=== PATIENT | female | born 1955 | race Caucasian/White ===

== ENCOUNTER → 2016-11-20 | Outpatient (CLI) | payer OTHER ==
[~2016-11-20] VITALS: Ht 157.5 cm; Wt 92.1 kg
[~2016-11-20] MED LIST: ACETAMINOPHEN-1 EAC1 PO; ADVAIR HFA115 MCG/21 INH; CHLORTHALIDONE25 MG PO; CLEOCIN HCL150 MG PO; HYDROCHLOROTH12.5 MG PO; HYDROCODONE-AP1 EAC6 PO; IBUPROFEN 600600 M1 PO; KETOPROFEN50 MG PO; LEVOTHYROXINE 0.1 MG PO; LOTREL 5-40 MG1 EACH PO; NORCO 5-325 TA1 EACH PO; PRILOSEC 20 MG20 MG PO; PROAIR HFA8.5 GM INH; SYNTHROID50 MCG PO; TRAMADOL 50 MG50 MG PO
--- NOTE | ~2016-11-20 | HPC ---
[facility] [place] [address] PAIN MANAGEMENT CONSULTATION Name: YARI WEINER Room #: REG [facility].#: [id number] Admission: 11/20/16 Attend Phys: Hector Bowens DO Discharge: Date of : 53 Report #: [id number] THIS REPORT FOR: //name// CC: Hector Goldberg DO DATE OF SERVICE: 11/20/2016 REFERRING PHYSICIAN: Miracle Lloyd MD CHIEF COMPLAINT: Low back pain, left lower extremity pain, left shoulder pain. HISTORY OF PRESENT ILLNESS: As you know, the patient is a 61-year-old female who returns today in followup visit to undergo the 3rd and final series of lumbar epidural injections under fluoroscopic guidance. The patient reports pain today of level of 4-5/10. Pain is burning, shooting, aching, throbbing, sharp, stabbing, tender and exacerbated with bending, walking, improves with sitting, heat, cold compresses and epidural injections. She reports a 50% improvement in overall pain with the epidural injection provided at last visit. She returns today requesting next in the series to build on success of previous intervention. She denies new injury or new trauma that may have led to continuation of her low back pain and lower extremity pain with paresthesias. She is also concerned today of ongoing left shoulder pain due to severe arthritic changes in the joint itself. She was discussed treatment options for this as well. ALLERGIES: SULFA. CURRENT MEDICATIONS: Ketoprofen twice a day, chlorthalidone 25 mg once a day, levothyroxine 100 mcg per day, amlodipine/benazepril 5/40 one tab per day. SOCIAL HISTORY: The patient continues to smoke. Denies IV or illicit drug use. Admits to 2 alcoholic beverages per day. She is currently unemployed. She is unaccompanied. PHYSICAL EXAMINATION: VITAL SIGNS: Blood pressure 126/78, pulse 85, respiratory rate 20, unlabored. The patient is 100% on room air. Height 5 feet 2 inches tall, weighs 203 pounds, BMI calculated 37.1. GENERAL: Well-developed, well-nourished, well-hydrated, morbidly obese 61-year-old female, appears stated age, placing current pain score at 4-5/10. HEENT: Normocephalic, atraumatic. Pupils equal, round, reactive to light. EXTREMITIES: Show no clubbing, no cyanosis, no edema. MUSCULOSKELETAL: Lower extremity strength appears equal and symmetrical 5/5, [address] [address] PAIN MANAGEMENT CONSULTATION Name: YARI WEINER [id number] Admission: 11/20/16 Attend Phys: Hector Bowens DO Discharge: Date of : 53 Report #: [id number] intact to light touch from L1 through S2 dermatomes. Seated straight leg raising negative. Supine straight leg raising positive on the left. Parag's test negative. Gait is mildly antalgic favoring left lower extremity over right. Stance is normal. There is palpatory tenderness over the anterior and posterior portion of the left shoulder. Active and passive range of motion of left shoulder causes intensification of pain. There is crepitus noted with maneuvering the shoulder in passive range of motion. ASSESSMENT: 1. Lumbar radiculopathy. 2. Spinal stenosis of the lumbar spine. 3. Displacement of lumbar intervertebral disk with radiculopathy. 4. Lumbosacral spondylosis with radiculopathy. 5. Degeneration of lumbar spine. 6. Left shoulder pain. 7. Chronic intractable pain. PLAN: 1. The patient has returned today in followup visit having received precertification to undergo the next in the series of epidural injections. The patient reported approximately 50% improvement in overall pain with the previous injection and hopeful to see similar improvement with today's procedure. She was advised risks and benefits of procedures, states she understood and wished to proceed. 2. The patient is experiencing ongoing left shoulder pain for which she indicates that she has had intra-articular shoulder injections in the past with good efficacy. It appears the patient is suffering from arthritic changes in the joint itself. There may be ultimately a labral tear that may need surgical option, but she has done very well with intra-articular shoulder injections in the past. She has requested of our services that we attempt to obtain precertification to undergo a left intra-articular shoulder injection in hopes of improving pain. I did advise the patient that this will take somewhere between 4-7 working days to have this approval obtained. Once we have the approval obtained, we will have the patient return in followup visit to undergo an intra-articular shoulder injection under fluoroscopic guidance. Again, we will schedule the patient back for this procedure once we have approval to move forward with this option for treatment. 3. No medication changes were made at today's visit. The patient will continue current medical therapy as previously prescribed. 4. The patient to return to our clinic once we have achieved authorization to undergo left intra-articular shoulder injection. PROCEDURE NOTE DESCRIPTION OF PROCEDURE: Lumbar epidural steroid injection under fluoroscopic guidance. [address] [address] PAIN MANAGEMENT CONSULTATION Name: YARI WEINER Room #: REG [facility]#: [id number] Admission: 11/20/16 Attend Phys: Hector Bowens DO Discharge: Date of : 53 Report #: [id number] This is the third procedure of the first series that the patient is undergoing. After obtaining written consent, the patient was taken back to the fluoroscopy suite, placed in a prone position with pillow under the abdomen to decrease lumbar lordosis. The skin overlying the lumbosacral area was then prepped and draped in aseptic fashion. The lumbar vertebral interspace was then identified by AP fluoroscopy. The skin and subcutaneous tissue overlying the target site of injection was anesthetized with 3 mL 1% lidocaine. A 20 gauge 3.5 inch Tuohy needle was then advanced under fluoroscopic guidance towards the epidural space using a paramedian approach. The epidural space was identified using loss of resistance to air technique. After negative aspiration for heme or cerebrospinal fluid, a total of 1 mL of Omnipaque was injected. A lumbar epidurogram was confirmed using both AP and lateral fluoroscopy. After negative aspiration for heme or cerebrospinal fluid, 5 mL of a solution containing 1 mL 40 mg per mL, 40 mg total triamcinolone, 1 mL of Depo-Medrol 80 mg per mL and 3 mL of lidocaine 1% was injected in increments. Contrast spread was noted in posterior epidural space. The needle was then retracted approximately half way and needle tract flushed with 1 mL of 1% lidocaine. Needle was then removed. There were no apparent sensory or motor deficits in the lower extremity following the procedure. A sterile bandage was placed over the injection site. The heart rate, pulse, oximetry and blood pressure were continuously monitored after the procedure. There were no apparent complications. The patient tolerated the procedure well and was carefully escorted to the recovery room in stable condition. There were no apparent complications. After meeting discharge criteria, the patient was then discharged home. <ELECTRONICALLY SIGNED> By: Hector Bowens DO 11/21/16 0757 1521 10 Hector Bowens DO /nt
[2016-11-20 13:31] VITALS: BP 126/78
== END | disposition home or self-care (01) ==
LOC: PAIN 10-30 08:45
DX: M51.16 Intervertebral disc disorders with radiculopathy, lumbar region (principal); M47.27 Other spondylosis with radiculopathy, lumbosacral region; M48.06 Spinal stenosis, lumbar region; M25.511 Pain in right shoulder; G89.29 Other chronic pain

== ENCOUNTER → 2016-12-11 | Outpatient (CLI) | payer OTHER ==
[~2016-12-11] VITALS: Ht 157.5 cm; Wt 91.8 kg
--- NOTE | ~2016-12-11 | HPC ---
[address] [place] [address] PAIN MANAGEMENT CONSULTATION Name: YARI WEINER Room #: REG [facility]#: [id number] Admission: 12/11/16 Attend Phys: Hector Bowens DO Discharge: Date of : 53 Report #: [id number] THIS REPORT FOR: //name// CC: Hector Mendoza DATE OF SERVICE: 12/11/2016 DATE OF SERVICE: 12/11/2016 CHIEF COMPLAINT: Left shoulder pain. HISTORY OF PRESENT ILLNESS: As you know, patient is a 61-year-old female, who returns today in followup visit to discuss her left shoulder pain. We have received precertification for the patient to undergo a left shoulder injection under fluoroscopic guidance, as she continues to experience shoulder pain with activities. The patient denies any new injury, new trauma to the shoulder that lead to progression of pain. She returns today requesting this injection plus medication management for pain control. ALLERGIES: SULFA. CURRENT MEDICATIONS: Ketoprofen 50 mg twice a day, chlorthalidone 25 mg once a day, levothyroxine 100 mcg per day, amlodipine/benazepril 5/40 one tab per day. SOCIAL HISTORY: The patient continues to smoke. Denies IV or illicit drug use. Admits to 2 alcoholic beverages per day. She is employed. She is working, not receiving workmen's compensation, unaccompanied today. PHYSICAL EXAMINATION: VITAL SIGNS: Blood pressure 164/93, pulse 73, respiratory rate 16, unlabored. The patient 98% on room air. Height 5 feet 2 inch tall, weight 202.4 pounds, BMI calculated 37. GENERAL: Well-developed, well-nourished, well-hydrated, morbidly obese 61-year-old female appearing stated age, placing current pain score 6/10. HEENT: Normocephalic, atraumatic. Pupils equal, round, reactive to light. Extraocular muscles are intact. EXTREMITIES: Show no clubbing, no cyanosis, no edema. MUSCULOSKELETAL: Pain is elicited with active and passive range of motion of the left shoulder. Deep palpation over the shoulder, both anterior and posteriorly cause intensification of pain. Upper extremity strength does appear equal and symmetrical, though there is a slight giveaway strength with bicep flexion on the left when compared to the right. [address] [address] PAIN MANAGEMENT CONSULTATION Name: YARI WEINER Room #: REG [facility]#: [id number] Admission: 12/11/16 Attend Phys: Hector Bowens DO Discharge: Date of : 53 Report #: [id number] ASSESSMENT: Left shoulder pain. PLAN: 1. The patient has returned today in followup visit requesting to address her left shoulder pain. We have received precertification for the patient to undergo a left intra-articular shoulder injection under fluoroscopic guidance. The patient and I did discuss the options for treatment including this injection, which would entail physical therapy, stretching exercise, core strengthening to maintain mobility of the shoulder. We discussed the intra-articular shoulder injection per plan for today and surgical options. After we discussed these variable treatment options, the patient chose to continue with the intra-articular shoulder injection. She was advised the risks and benefits of the procedure. These risks include but not necessarily limited to bleeding, bruising, infection, worsening pain, no relief of pain, also risk of temporary or permanent muscle weakness, temporary or permanent nerve damage and joint destruction. The patient states understood and wished to proceed. 2. The patient was provided a prescription of tramadol 50 mg dose 1 tab p.o. q. 6 hours p.r.n. for pain, I have given the patient #90 tablets. The patient was given the prescription today, but chose not to take the prescription. She declined this prescription. She indicated that she would be receiving her pain medications to her primary care physician. 3. The patient will return to our clinic on an as needed basis for treatment for lumbar radicular symptoms and left shoulder pain. PROCEDURE NOTE DESCRIPTION OF PROCEDURE: Left intraarticular shoulder injection under fluoroscopic guidance. After obtaining written consent, the patient was taken back to fluoroscopy suite, placed in a supine position. The image intensifier was then brought over the left shoulder and imaging was obtained to confirm position of the injection. The area was then marked with a marker and then prepped sterilely with chlorhexidine. A #25-gauge 2 inch needle was used to anesthetize skin and subcutaneous tissue with 1 mL of lidocaine 1%. This 2 inch needle was then advanced under fluoroscopic guidance into the shoulder joint under direct visualization. The needle was advanced until it reached the proximal head of the humerus. The needle was then retracted approximately 1 mm. Aspiration was noted to be negative for heme. Next, 0.5 mL of Omnipaque was injected demonstrating an excellent left shoulder arthrogram. After negative aspiration for heme, 3 mL of a solution containing 1 mL 40 mg per mL, 40 mg total triamcinolone and 2 mL bupivacaine 0.5% was injected slowly. Needle was retracted [facility] flushed with 1 mL bupivacaine 0.5% and removed. Sterile bandage was placed over injection site. No new motor deficits present in the left upper extremity after [facility] [address] [place] [address] PAIN MANAGEMENT CONSULTATION Name: YARI WEINER [facility] [id number] Admission: 12/11/16 Attend Phys: Hector Bowens DO Discharge: Date of : 53 Report #: [id number] procedure. The patient tolerated procedure well, carefully escorted to recovery room in stable condition. No apparent complications. After meeting discharge criteria, the patient discharged home. <ELECTRONICALLY SIGNED> By: Hector Bowens DO 12/24/16 0805 0806 2248 Hector Bowens DO /nt
[2016-12-11 11:26] VITALS: BP 164/93
== END | disposition home or self-care (01) ==
LOC: PAIN 06:50
DX: M25.512 Pain in left shoulder (principal); F17.210 Nicotine dependence, cigarettes, uncomplicated

== ENCOUNTER → 2017-12-03 | Outpatient (CLI) | payer OTHER ==
[~2017-12-03] VITALS: Ht 157.5 cm; Wt 92.1 kg
[~2017-12-03] MED LIST changes: -KETOPROFEN50 MG PO; +KETOPROFEN75 MG PO; +NABUMETONE 500500 M1 PO; +VITAMIN B-12500 MCG PO
--- NOTE | ~2017-12-03 | HPC ---
[facility] [place] [address] PAIN MANAGEMENT CONSULTATION Name: KUSUMCYNTHIAYARI MEIR [facility] [id number] Admission: 12/03/17 Attend Phys: Hector Bowens DO Discharge: Date of : 53 Report #: [id number] THIS REPORT FOR: //name// CC: Hector Goldberg DATE OF SERVICE: 12/03/2017 CHIEF COMPLAINT: Right thumb pain, right shoulder pain. HISTORY OF PRESENT ILLNESS: As you know, the patient is a pleasant 62-year-old female who was initially seen by [facility] in the past for low back pain, bilateral lower extremity pain. She was referred to our clinic by her primary care physician for treatment. She has been lost to follow up until today, 12/03/2017, returning for right shoulder pain, which has been found to have severe osteoarthritic changes and right thumb pain that radiates from the metacarpal joint, both distally and proximally up to about 3 inches from the right wrist. No radiation of symptoms in cervical radicular pattern. She indicates that she saw Orthopedics who advised the patient that the numbness and tingling was due to neck issues, sent the patient for an MRI, which shows no neural foraminal stenosis, no central canal stenosis and no impingement of the nerve root throughout the cervical region. She is placing her symptom score at 2/10 involving only right shoulder. ALLERGIES: SULFA. CURRENT MEDICATIONS: Cyanocobalamin 500 mcg once a day, ketoprofen 75 mg twice a day, chlorthalidone 25 mg a day, levothyroxine 100 mcg per day, amlodipine/benazepril 5/40 one tab per day. IMAGING: MRI cervical spine obtained on 09/23/2017 showed C1-C2 unremarkable. C2-C3 unremarkable. C3-C4 unremarkable. C4-C5 unremarkable. C5-C6 shows a minimal right uncovertebral osteophyte; no significant central canal neural foraminal stenosis; no subluxation, dislocation, disk protrusion; no nerve root impingement. C6-C7 unremarkable. PHYSICAL EXAMINATION: VITAL SIGNS: Blood pressure 141/84, pulse is 80, respiratory rate 16 and unlabored. The patient is 98% on room air, height 5 feet 2 inches tall, weight 203 pounds, BMI calculated 37.1. GENERAL: Well-developed, well-nourished, well-hydrated exogenously obese 62-year-old female appearing her stated age, pain is rated at 2/10. HEENT: Normocephalic, atraumatic. Pupils equal, round, reactive to light. Extraocular muscles are intact. Sclerae nonicteric without injection. NEUROLOGIC: Cranial nerves 2-12 grossly intact. Speech is fluent. LUNGS: Clear. No wheeze, rhonchi or rales. [address] [address] PAIN MANAGEMENT CONSULTATION Name: KUSUMCYNTHIAYARISalome WORLEY Room #: REG [facility]#: [id number] Admission: 12/03/17 Attend Phys: Hector Bowens DO Discharge: Date of : 53 Report #: [id number] CARDIOVASCULAR: Regular. No appreciable gallop, no rub. ABDOMEN: Soft, obese, nontender, nondistended, normal active bowel sounds. EXTREMITIES: Show no clubbing, no cyanosis, no edema. MUSCULOSKELETAL: Active and passive range of motion right shoulder causes intensification of pain. Apprehension test is negative. Cervical provocation testing causes no change in overall pain. Spurling's test negative. Muscle bulk and tone equal and symmetrical in upper extremities. Boarding House Manager strength is equal and symmetrical 5/5. Tactile sensation from C5-T1 normal. There is tenderness to palpation over the metacarpophalangeal joint of the right side, proximal portion of the thumb. Deep palpation of the area causes the patient's typical radiating pain pattern. ASSESSMENT: 1. Right shoulder osteoarthritis. 2. Right hand pain and wrist pain. 3. Chronic intractable pain. PLAN: 1. Based on today's physical exam and history the patient has provided, the description the patient uses in regards to pain as well as the discrete locations of symptoms, one being the right shoulder which does not radiate beyond typical shoulder distribution and the right proximal thumb pain, the physical exam, the findings on MRI imaging would indicate no cervical etiology. I have reviewed the MRI, both in the official read from the radiologist as well as the imaging, I am unable to find any nerve root impingement, there is no subluxations, no dislocations, there are disc no signal changes, there is only a minor osteophytic formation at the C5-C6 level but this would not cause any nerve root impingement, nor has there been any changes or deformation of the nerve within the area, the canal itself is patent. Deep palpation over the proximal portion of the thumb shows a point tender specificness over the phalangeal carpal joint, I believe is arthritic in nature and this is the source of the patient's right thumb pain. As for the shoulder, no radicular component. The patient has been referred to our clinic by her orthopedic surgeon for possible cervical epidural injection at this point. At this point, I have been unable to elicit any radicular component of the patient's symptoms, but she could certainly undergo an epidural injection. We advised the patient that third green party payer restrictions require that authorization be obtained and we will begin this authorization process. If we are able to obtain an authorization for the patient to undergo the cervical epidural injection, we will have her back to undergo the procedure. 2. The patient will be started on nabumetone 500 mg dose 1 tab p.o. t.i.d., #90, 2 refills. This is being provided to the patient for anti-inflammatory activity. The patient has reported she has near 100% improvement in her symptoms with [id number] nonsteroidal anti-inflammatory therapy. We are going to try the patient on a week worth of medication. If this is effective at treating symptoms, this would indicate more of an arthritic problem than a [facility] [address] [place] [address] PAIN MANAGEMENT CONSULTATION Name: YARI WEINER Room #: REG CL Ira#: [id number] Admission: 12/03/17 Attend Phys: Hector Bowens DO Discharge: Date of : 53 Report #: [id number] neuropathic problem. We will assess this over the next week as we await authorization for the requested epidural injection. 3. We will see the patient back in followup visit once we have gained authorization for the patient to undergo the cervical epidural injection requested. Once this injection has been completed, we will be returning the patient's care to her orthopedic surgeon for evaluation for the osteoarthritis noted in the right shoulder and at the base of the right thumb. <ELECTRONICALLY SIGNED> By: Hector Bowens DO 12/10/17 0906 1602 2325 Hector Bowens DO /zara
[2017-12-03 11:05] VITALS: BP 141/84
== END ==
LOC: PAIN 07:13
DX: M19.011 Primary osteoarthritis, right shoulder (principal); G89.29 Other chronic pain

== ENCOUNTER → 2018-01-07 | Outpatient (CLI) | payer OTHER ==
[~2018-01-07] VITALS: Ht 157.5 cm; Wt 93.3 kg
--- NOTE | ~2018-01-07 | HPC ---
[facility] [place] [address] PAIN MANAGEMENT CONSULTATION Name: YARI WEINER Room #: REG [facility].#: [id number] Admission: 01/07/18 Attend Phys: Hector Bowens DO Discharge: Date of : 53 Report #: [id number] THIS REPORT FOR: //name// CC: Hector Mendoza DATE OF SERVICE: 01/07/2018 CHIEF COMPLAINT: Neck pain, right upper extremity pain and paresthesias. HISTORY OF PRESENT ILLNESS: As you know, the patient is a very pleasant 62-year-old female who returns today in followup visit to undergo next in the series of cervical epidural injections under fluoroscopic guidance. The patient is placing pain score today 2/10, states it can reach up to a level of 8/10. She reports good efficacy with previous injection therapies. She returns today requesting cervical epidural injection to build on success of previous intervention. She states her pain is numbness, tingling, sharp in sensation; exacerbated with movement; improves with heat, cold compresses and cervical injections. She returns to undergo cervical epidural injection under fluoroscopic guidance. ALLERGIES: SULFA. CURRENT MEDICATIONS: Nabumetone, cyanocobalamin, ketoprofen, chlorthalidone, levothyroxine, amlodipine, benazepril. SOCIAL HISTORY: The patient denies tobacco use. Denies IV or illicit drug use. She is unaccompanied today. IMAGING: No new imaging available. PQRS: The patient does not have known osteoarthritis or rheumatoid arthritis. Her pain intensity is 2/4. She is not a fall risk, has not had a fall in 3 months. She is not on blood thinners. She is treated for hypertension. She is not on opioid contract, so risk for opioid addiction is low. PHYSICAL EXAMINATION: VITAL SIGNS: Blood pressure 118/70, pulse 80, respiratory rate 16 and unlabored, the patient is 99% on room air. Height 5 feet 2 inches tall, weight 205.6 pounds, BMI calculated 37.6. GENERAL: Well-developed, well-nourished, well-hydrated exogenously obese 62-year-old female appearing her stated age, placing current pain score 2/10. HEENT: Normocephalic, atraumatic. Pupils equal, round, reactive to light. Extraocular muscles are intact. EXTREMITIES: Show no clubbing, no cyanosis, no edema. [address] [address] PAIN MANAGEMENT CONSULTATION Name: YARI WEINER [id number] Admission: 01/07/18 Attend Phys: Hector Bowens DO Discharge: Date of : 53 Report #: [id number] MUSCULOSKELETAL: Active and passive range of motion of the upper extremities, appears equal and symmetrical. Spurlings test is negative. Muscle bulk and tone equal and symmetrical in upper extremities. ASSESSMENT: 1. Chronic neck pain. 2. Cervical radicular symptoms. 3. Right upper extremity paresthesias. 4. Chronic intractable pain. PLAN: 1. The patient has returned today in followup visit to undergo cervical epidural injection under fluoroscopic guidance. The patient has been requested to undergo the procedure today. I have advised the patient of the risks and benefits of a cervical epidural injection. These risks include but not necessarily limited to bleeding, bruising, infection, worsening pain, no relief of pain, also risk of temporary or permanent muscle weakness, temporary or permanent nerve damage, possible paralysis and . The patient states she understood and wished to proceed. 2. No medication changes were made at today's visit. The patient will continue current medical therapy as previously prescribed. 3. We will see the patient back in followup visit on an as needed basis for next in a series of cervical epidural injections. PROCEDURE NOTE DESCRIPTION OF PROCEDURE: C7-T1 cervical epidural steroid injection under fluoroscopic guidance. After obtaining written consent, the patient was taken back to fluoroscopy suite, placed in prone position with pillow under his forehead and chest to decrease cervical lordosis. Skin overlying cervical area prepped and draped in aseptic fashion. C7-T1 cervical interspace was identified by AP fluoroscopy. Skin and subcutaneous tissue overlying target site of injection was anesthetized with 3 mL of 1% lidocaine. A 20-gauge 3-1/2 inch Tuohy needle advanced under fluoroscopic guidance towards the epidural space using midline approach. Epidural space was identified using loss of resistance to air technique. After negative aspiration for heme or cerebrospinal fluid, 1 mL of Omnipaque was injected. A cervical epidurogram was confirmed using both AP and oblique fluoroscopy. After negative aspiration for heme or cerebrospinal fluid, 5 mL of a solution containing 2 mL 40 mg per mL, 80 mg total triamcinolone, 3 mL of lidocaine 1% was injected in increments. Needle was retracted senior care, flushed with 1 mL of 1% lidocaine and removed. Sterile bandage placed over injection site. No new motor deficits present in the upper extremity following procedure. [facility] [address] [place] [address] PAIN MANAGEMENT CONSULTATION Name: YARI WEINER [id number] Admission: 01/07/18 Attend Phys: Hector Bowens DO Discharge: Date of : 53 Report #: [id number] The patient tolerated the procedure well, carefully escorted to the recovery room in stable condition. No apparent complications. After meeting discharge criteria, the patient discharged home. <ELECTRONICALLY SIGNED> By: Hector Bowens DO 01/08/18 [id number] Hector Bowens DO /nt
[2018-01-07 10:43] VITALS: BP 118/70
== END ==
LOC: PAIN 07:04
DX: M50.83 Other cervical disc disorders, cervicothoracic region (principal); R20.2 Paresthesia of skin; G89.29 Other chronic pain; I10 Essential (primary) hypertension; Z88.2 Allergy status to sulfonamides; Z91.030 Bee allergy status; Z79.899 Other long term (current) drug therapy; F17.210 Nicotine dependence, cigarettes, uncomplicated